=== PATIENT | female | born 1975 | race Caucasian/White ===

== ENCOUNTER 2018-02-01 23:56 | Emergency (ER) | payer OTHER ==
--- NOTE | 2018-02-02 00:08 | Emergency Department Record ---
History of Present Illness - General Chief Complaint: Ankle/Foot Injury Stated Complaint: RIGHT ANKLE INJURY Time Seen by Provider: 02/02/18 00:04 Source: Patient Mode of Arrival: Wheelchair Limitations: No limitations - History of Present Illness Initial Comments: 42 yo female presents to ED for evaluation of an injury to the right ankle. Patient reports that she stepped off of step at home approximately 90 minutes ago resulting in lateral ankle pain and swelling. Patient denies injury to the foot or above the ankle, denies other injury related to the fall. Patient did take Ibuprofen 800 mg prior to arrival and applied ice as well. MD Complaint: Ankle injury Onset/Timin -: Minutes(s) Injury: Ankle: Right Type of Injury: Inversion Place: Home Severity: Moderate Improves With: Nothing Worsens With: Movement Context: Walking Associated Symptoms: Snap/pop sensation, Unable to bear weight Treatments Prior to Arrival: Bandage, Cold therapy, NSAIDS - Related Data Home Medications Medication Instructions Recorded Confirmed Last Taken No Home Med [NO HOME MEDS] 02/02/18 02/02/18 Unknown Allergies Allergy/AdvReac Type Severity Reaction Status Date / Time No Known Drug Allergies Allergy Verified 02/02/18 00:03 Review of Systems Constitutional: Denies: Chills, Fever, Malaise, Night sweats Eyes: Denies: Eye discharge, Eye pain ENT: Denies: Congestion, Ear pain, Epistaxis Respiratory: Denies: Cough, Dyspnea Cardiovascular: Denies: Chest pain, Dyspnea on exertion Endocrine: Denies: Fatigue, Heat or cold intolerance Gastrointestinal: Denies: Abdominal pain, Nausea, Vomiting Genitourinary: Denies: Incontinence, Retention Musculoskeletal: Reports: Arthralgia. Denies: Back pain, Gout, Joint swelling Skin: Denies: Bruising, Change in color, Change in hair/nails Neurological: Denies: Abnormal gait, Confusion, Headache, Seizure Psychiatric: Denies: Anxiety Hematological/Lymphatic: Denies: Anemia, Blood Clots Physical Exam - General General Appearance: Alert, Oriented x3, Cooperative, Moderate distress Limitations: No limitations - Head Head exam: Atraumatic, Normocephalic, Normal inspection Head exam detail: negative: Abrasion, Contusion, Hill's sign, General tenderness, Hematoma, Laceration - Eye Eye exam: Normal appearance. negative: Conjunctival injection, Periorbital swelling, Periorbital tenderness, Scleral icterus - ENT Ear exam: negative: Auricular hematoma, Auricular trauma Nasal Exam: negative: Active bleeding, Discharge, Dried blood, Foreign body Mouth exam: negative: Drooling, Laceration, Muffled voice, Tongue elevation - Neck Neck exam: Normal inspection. negative: Meningismus, Tenderness - Respiratory Respiratory exam: Normal lung sounds bilaterally. negative: Rales, Respiratory distress, Rhonchi, Stridor - Cardiovascular Cardiovascular Exam: Regular rate, Normal rhythm, Normal heart sounds Peripheral Pulses: 3+: Dorsalis Pedis (R) - GI/Abdominal GI/Abdominal exam: Soft. negative: Rebound, Rigid, Tenderness - Rectal Rectal exam: Deferred - exam: Deferred - Extremities Extremities exam: Joint swelling, Tenderness, Other (STS to the lateral right ankle, no pain with palpation of the foot/proximal fibula. Achilles intact. Compartments of the right lower extremity are soft, and DPP is strong and present.). negative: Calf tenderness, Pedal edema - Neurological Neurological exam: Alert, Oriented X3. negative: Motor sensory deficit - Psychiatric Psychiatric exam: Normal affect, Normal mood - Skin Skin exam: Normal color. negative: Abrasion Type of lesion: negative: abrasion Course - Reevaluation(s) Reevaluation #1: 02/02/18 00:56 Right ankle: Negative for fracture, lateral STS Patient was updated on her radiology result, will place in air splint and crutches for support with instructions for symptomatic care at home. Patient appears stable for discharge at this time. Disposition Disposition: Discharge Clinical Impression: Ankle sprain Qualifiers: Encounter type: initial encounter Involved ligament of ankle: anterior talofibular ligament Laterality: right Qualified Code(s): S93.491A - Sprain of other ligament of right ankle, initial encounter Disposition: Home, Self-Care Condition: (2) Stable Instructions: Ankle Sprain (ED) Additional Instructions: Return to ED if your symptoms worsen or if you have any concerns. Air splint/crutches as needed. Ice and ibuprofen as needed. Follow-up with your family doctor in 3-5 days as directed. Forms: Patient Portal Access Time of Disposition: 00:58 Quality - Quality Measures Quality Measures: N/A - Blood Pressure Screening Does Patient Have Any of the Following: No Blood Pressure Classification: Pre-Hypertensive BP Reading Systolic Measurement: 137 Diastolic Measurement: 87 Screening for High Blood Pressure: < Pre-Hypertensive BP, F/U Documented > [ G8950] Pre-Hypertensive Follow-up Interventions: Referral to alternative/primary care provider.
--- NOTE | 2018-02-02 14:23 | RADIOLOGY REPORT ---
EXAM: RIGHT ANKLE HISTORY: PAIN. TECHNIQUE: Three views of the right ankle were obtained. Comparison: None. FINDINGS: Lateral soft tissue swelling. Negative for acute fracture or dislocation. The ankle mortise is intact. IMPRESSION: LATERAL SOFT TISSUE SWELLING. NO FRACTURE. JOB NUMBER: [id number] MTDD
== END 2018-02-02 01:19 | disposition home or self-care (01) ==
LOC: ER 23:56
DX: S93.491A Sprain of other ligament of right ankle, initial encounter (principal); W10.9XXA Fall (on) (from) unspecified stairs and steps, initial encounter; Y92.009 Unspecified place in unspecified non-institutional (private) residence as the place of occurrence of the external cause
CPT/HCPCS: 99283

== ENCOUNTER 2018-09-22 21:42 | Emergency (ER) | payer BC ==
--- NOTE | 2018-09-22 22:01 | Emergency Department Record ---
History of Present Illness - General Chief complaint: Pain Stated complaint: PAIN ON RT SIDE OF FACE Time Seen by Provider: 09/22/18 22:01 Source: Patient Mode of Arrival: Ambulatory Limitations: No limitations - History of Present Illness Initial comments: Pt with right facial pain onset today. No trauma, injury, dental pain. Pain is from anterior to right ear down jaw and across maxilla. No fever, No DM, No swelling to salivary glands. No hx of similar. No recent illness. Pt had a BEAUCHAMP this AM but not when this pain started. Pt took OTC motrin when the jaw pain started with some improvment. Onset/Timin -: Hour(s) Location: Right History of Same: No Radiation: None Severity scale (1-10): 7 Quality: Burning, Stabbing Consistency: Intermittent Improves with: Medication Worsens with: Nothing Associated Symptoms: Denies other symptoms - Related Data Previous Rx's Medication Instructions Recorded Valacyclovir HCl [Valtrex] 500 mg PO Q12H 10 Days #20 tab 09/22/18 Valacyclovir HCl [Valtrex] 500 mg PO Q12H 10 Days #20 tab 09/22/18 Allergies Allergy/AdvReac Type Severity Reaction Status Date / Time No Known Drug Allergies Allergy Verified 02/02/18 00:03 Travel Screening - Travel/Exposure Within Last 30 Days Have you traveled within the last 30 days?: No - Travel Symptoms Symptom Screening: None Review of Systems Constitutional: Denies: Chills, Fever, Weakness Eyes: Denies: Eye discharge, Eye pain, Vision change ENT: Denies: Congestion, Epistaxis, Throat pain Respiratory: Denies: Cough, Dyspnea Cardiovascular: Denies: Arrhythmia, Chest pain Endocrine: Denies: Fatigue Gastrointestinal: Denies: Abdominal pain Genitourinary: Denies: Abnormal menses Skin: Denies: Bruising, Rash Neurological: Reports: Headache. Denies: Numbness, Seizure, Weakness Psychiatric: Denies: Anxiety Hematological/Lymphatic: Denies: Anemia Past Medical History - SOCIAL HISTORY Smoking Status: Never smoker Alcohol Use: None Drug Use: None - RESPIRATORY Hx Respiratory Disorders: No - CARDIOVASCULAR Hx Cardio Disorders: No - NEURO Hx Neuro Disorders: No - GI Hx GI Disorders: No - Hx Genitourinary Disorders: No - ENDOCRINE Hx Endocrine Disorders: No - MUSCULOSKELETAL Hx Musculoskeletal Disorders: No - PSYCH Hx Psych Problems: No - HEMATOLOGY/ONCOLOGY Hx Hematology/Oncology Disorders: No Family Medical History Any Significant Family History?: Yes Family Hx Comment (NOT TO BE USED IN PLACE OF ITEMS BELOW): denies Physical Exam - General General Appearance: Alert, Oriented x3, Cooperative, Mild distress - Head Head exam: Atraumatic - Eye Eye exam: Normal appearance, PERRL, EOMI - ENT ENT exam: Mucous membranes moist, Normal external ear exam, Normal orophraynx Nasal Exam: Normal inspection Mouth exam: Normal external inspection (no abscess to gums on digital exam with gloved finger. ) Teeth exam: Normal inspection. negative: Dental tenderness #, Fractured tooth # , Gingival enlargement Throat exam: Normal inspection - Neck Neck exam: Normal inspection, Full ROM. negative: Lymphadenopathy, Tenderness - Respiratory Respiratory exam: Normal lung sounds bilaterally. negative: Respiratory distress, Wheezes - Cardiovascular Cardiovascular Exam: negative: Regular rate, Normal rhythm, Normal heart sounds - GI/Abdominal GI/Abdominal exam: Soft. negative: Tenderness - Extremities Extremities exam: Normal inspection, Full ROM. negative: Tenderness - Back Back exam: Reports: Normal inspection - Neurological Neurological exam: Alert, Normal gait, Oriented X3, Other (pain in facial nerve distribution right. ). negative: Motor sensory deficit - Psychiatric Psychiatric exam: Normal affect - Skin Skin exam: Normal color, Other (face without lesions consistent with shingles). negative: Rash Course Vital Signs 09/22/18 21:54 Temperature 98.0 F Pulse Rate 76 Respiratory 18 Rate Blood Pressure 145/91 Pulse Ox 96 - Reevaluation(s) Reevaluation #1: 09/22/18 22:37 Seen with pain to right face like a burning. No dental issues, no salivary stone, no skin lesions to suggest shingles. The pain discription suggest early shingles. We will treat with antiviral and motrin with close family doc follow up. Pt agrees Disposition Disposition: Discharge Clinical Impression: Zoster, Facial pain, acute Disposition: Home, Self-Care Condition: (1) Good Instructions: Shingles (ED) Prescriptions: Valacyclovir HCl [Valtrex] 500 mg PO Q12H 10 Days #20 tab Valacyclovir HCl [Valtrex] 500 mg PO Q12H 10 Days #20 tab Forms: Patient Portal Access Quality - Quality Measures Quality Measures: N/A - Blood Pressure Screening Does Patient Have Any of the Following: No Blood Pressure Classification: Pre-Hypertensive BP Reading Systolic Measurement: 120 Diastolic Measurement: 83 Screening for High Blood Pressure: < Pre-Hypertensive BP, F/U Documented > [ G8950] Pre-Hypertensive Follow-up Interventions: Follow-up with rescreen every year.
[2018-09-22] MEDS ORDERED: ACYCLOVIR 200 MG CAPSULE PO ONE (22:31)
== END 2018-09-22 22:53 | disposition home or self-care (01) ==
LOC: ER 21:42
DX: B02.8 Zoster with other complications (principal); R51 Headache
CPT/HCPCS: 99282